=== PATIENT | female | born 1985 | race Caucasian/White ===

== ENCOUNTER 2018-08-06 11:30 | Emergency (ER) | payer OTHER ==
[2018-08-06] MEDS: DIAZEPAM 5 MG TAB PO (12:29)
[2018-08-06] MEDS: ACETAMINOPHEN 500 MG TAB PO (12:29)
[2018-08-06] MEDS: HYDROCODONE/APAP (5/325) TAB PO ×2 (14:23→17:32)
[2018-08-06] MEDS: ONDANSETRON 4 MG INJ IV (20:30)
[2018-08-06] MEDS: HYDROmorphONE 0.5 MG/0.5 ML SYG IV (20:30)
== END 2018-08-06 21:48 | disposition home or self-care (01) ==
LOC: FTE 11:30 → E/R 21:48
DX: S89.91XA Unspecified injury of right lower leg, initial encounter (principal); X50.1XXA Overexertion from prolonged static or awkward postures, initial encounter; Y92.9 Unspecified place or not applicable
CPT/HCPCS: 29505; 73562; 73721; 96374; 96375; 99285-25